=== PATIENT | female | born 1955 | race Caucasian/White ===

== ENCOUNTER 2016-11-04 15:23 | Emergency (ER) | payer MEDICARE, OTHER ==
[~2016-11-04] VITALS: Ht 154.9 cm; Wt 66.0 kg
[~2016-11-04 15:23] MED LIST: AMLO-147 PO; ATEN50TA PO; ATOR20TA65 PO; MTF1000T PO; NPH,100V10 SC; UDROBDM PO
[2016-11-04 15:31] VITALS: Ht 154.9 cm; Wt 66.0 kg
== END 2016-11-04 18:25 | disposition left against medical advice (07) ==
LOC: E/R 15:23
DX: Z53.21 Procedure and treatment not carried out due to patient leaving prior to being seen by health care provider (principal)